=== PATIENT | male | born 1970 | race Caucasian/White ===

== ENCOUNTER 2019-05-20 10:46 | Emergency (ER) | payer OTHER ==
[~2019-05-20] VITALS: Ht 188 cm; Wt 90.7 kg
[~2019-05-20 10:46] MED LIST: KEFLEX500 MG PO
[2019-05-20] MEDS ORDERED: ATIVAN0.5 MG PO (10:54)
[2019-05-20] MEDS ORDERED: ZANTAC 150MG T150 MG PO (10:54)
[2019-05-20] MEDS ORDERED: PRILOSEC OTC20 MG PO (10:54)
[2019-05-20] MEDS ORDERED: LEXAPRO 10 MG T10 M2 PO (10:54)
[2019-05-20 11:28] LABS: ABSOLUTE LYMPHOCYTES 1.3 thou/uL (0.8-5.3); ABSOLUTE MONOCYTES 0.6 thou/uL (0.0-1.2); ABSOLUTE NEUTROPHILS 6.9 thou/uL (1.6-8.1); BASOPHILS 0.2 %; EOSINOPHILS 0.1 %; HEMATOCRIT 44.4 % (42.0-52.0); HEMOGLOBIN 15.4 gm/dL (14.0-18.0); LYMPHOCYTES 14.6 %; MCH 29.8 pg (26.0-34.0); MCHC 34.6 g/dL (28.0-37.0); MCV 85.9 fL (80.0-100.0); MPV 10.4 fl. (7.2-11.1); NUCLEATED RBCS 0 /100WBC; PLATELET COUNT* 177 thou/uL (150-400); POLYS 78.1 %; RBC 5.16 mil/uL (4.50-6.00); RDW-CV 14.1 % (10.5-14.5); WBC 8.9 thou/uL (4.0-11.0)
[2019-05-20 11:37] LABS: ANION GAP 15 mmol/L (7-16); BUN 8 mg/dL (7-18); CALCIUM 9.1 mg/dL (8.5-10.1); CHLORIDE 98 mmol/L (98-107); CO2 21 mmol/L (21-32); GLUCOSE 111 mg/dL (70-99); POTASSIUM 3.4 mmol/L (3.5-5.1); SODIUM 134 mmol/L (136-145)
[2019-05-20 11:38] LABS: APTT 25.2 Seconds (25.0-31.3); INR 1.1; PROTIME 10.9 Seconds (9.20-11.50)
[2019-05-20 11:47] LABS: ALBUMIN 4.1 g/dL (3.4-5.0); ALKALINE PHOSPHATASE 58 U/L (46-116); LIPASE 125 U/L (73-393); SGOT 18 U/L (15-37); SGPT 28 U/L (30-65); TOTAL BILIRUBIN 0.8 mg/dL (<0.1-1.0); TOTAL PROTEIN 7.2 g/dL (6.4-8.2); TROPONIN-I LEVEL <0.06 ng/mL (<0.06)
[2019-05-20] MEDS ORDERED: VISTARIL 25 MG25 M1 PO (12:07)
[2019-05-20 12:38] VITALS: BP 143/95
--- NOTE | 2019-05-20 17:17 | EKG ---
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 05/20/19 1717 1054 1054 Cooper Plascencia MD, [facility] /EPI
== END 2019-05-20 12:41 | disposition home or self-care (01) ==
LOC: M.ERS 10:46
PROVIDERS: Physician Assistant
DX: F41.0 Panic disorder [episodic paroxysmal anxiety] (principal); Z90.89 Acquired absence of other organs; Z87.01 Personal history of pneumonia (recurrent); Z88.2 Allergy status to sulfonamides

== ENCOUNTER 2019-08-25 18:35 | Emergency (ER) | payer OTHER ==
[~2019-08-25] VITALS: Ht 188 cm; Wt 86.2 kg
[~2019-08-25 18:35] MED LIST changes: +ATIVAN0.5 MG PO; +LEXAPRO 10 MG T10 M2 PO; +PRILOSEC OTC20 MG PO; +VISTARIL 25 MG25 M1 PO; +ZANTAC 150MG T150 MG PO
[2019-08-25] MEDS ORDERED: NORVASC 2.5 MG2.5 M1 PO (18:52)
[2019-08-25] MEDS ORDERED: ATIVAN1 M1 PO (18:53)
[2019-08-25] MEDS ORDERED: NORCO 5-325 TA1 EAC1 PO (20:51)
[2019-08-25] MEDS ORDERED: KEFLEX500 M2 PO (20:51)
[2019-08-25] MEDS ORDERED: IBU600 MG PO (20:51)
[2019-08-25 21:13] VITALS: BP 142/80
== END 2019-08-25 21:14 | disposition home or self-care (01) ==
LOC: M.ERS 18:35
DX: S92.532A Displaced fracture of distal phalanx of left lesser toe(s), initial encounter for closed fracture (principal); Z90.49 Acquired absence of other specified parts of digestive tract; Z88.2 Allergy status to sulfonamides; X58.XXXA Exposure to other specified factors, initial encounter; Y93.89 Activity, other specified; Y92.89 Other specified places as the place of occurrence of the external cause; Y99.8 Other external cause status